=== PATIENT | male | born 1990 | race Caucasian/White ===

== ENCOUNTER 2016-09-16 20:22 | Emergency (ER) | payer BC, OTHER ==
[2016-09-16 20:27] VITALS: RESP 18
[2016-09-16] MEDS ORDERED: IBUPROFEN 200 MG TAB PO ONE (20:28)
--- NOTE | 2016-09-16 20:47 | EDPHY ---
H & P Time Seen by Provider: 09/16/16 20:34 HPI/ROS: CHIEF COMPLAINT: Left ankle pain HISTORY OF PRESENT ILLNESS: This otherwise healthy 26-year-old male, presents to the emergency department after an inversion ankle injury. The patient complains of pain to the lateral ankle and swelling. The patient has no other complaints, denies numbness or tingling to affected limb. Smoking Status: Never smoked Physical Exam: General appearance: alert no distress Left ankle: There is swelling and tenderness over the lateral ankle. TTP to ATFL. There is no tenderness over the achilles tendon. The foot is non-tender without swelling. No TTP over 5th metatarsal. No proximal fibular tenderness, no ankle pain with lateral calf squeeze Neurologic exam: The patient has normal sensation and motor function distal to the injury. Vascular exam: Normal pulses and capillary refill in the foot Constitutional: Initial Vital Signs Temperature (C) 36.8 C 09/16/16 20:24 Heart Rate 112 H 09/16/16 20:24 Respiratory Rate 18 09/16/16 20:24 Blood Pressure 120/76 09/16/16 20:24 O2 Sat (%) 98 09/16/16 20:24 O2 Delivery Mode Room Air Allergies/Adverse Reactions: No Known Allergies Allergy (Verified 12/06/15 00:49) Home Medications: Medication Instructions Recorded Miscellaneous Medical Supply [NO 0 ea MIS AD 11/11/11 HOME MEDS] MDM/Departure - MDM Imaging Results: Imaging Impressions Ankle X-Ray 09/16/16 20:28 Impression: Negative for fracture. Imaging: I viewed and interpreted images myself - Depart Disposition: Home, Routine, Self-Care Clinical Impression: Left ankle sprain Qualifiers: Encounter type: initial encounter Involved ligament of ankle: other ligament Qualified Code(s): S93.492A - Sprain of other ligament of left ankle, initial encounter Condition: Good Instructions: Ankle Sprain (ED) Additional Instructions: Rest, ice, elevate, take 600mg of ibuprofen every 8 hours with food for 3-5 days as needed for pain and swelling. Use crutches as needed for weight- bearing. Follow up with Dr. Daniel at 1st available appointment. Return to the emergency department for any numbness, tingling, discoloration of you limb or other concerns. Referrals: Alfa Daniel MD [Medical Doctor] - As per Instructions
[2016-09-16 21:39] VITALS: BP 137/80; PULSE 88; TEMP 98.1; O2SAT 95
== END 2016-09-16 21:33 | disposition home or self-care (01) ==
DX: S93.492A Sprain of other ligament of left ankle, initial encounter (principal); X58.XXXA Exposure to other specified factors, initial encounter
CPT/HCPCS: L4350